=== PATIENT | male | born 1965 | race Caucasian/White ===

== ENCOUNTER 2018-04-15 20:53 | Inpatient (IN) ==
--- NOTE | 2018-04-15 21:09 | Emergency Department Note ---
START Narrative - START START: I examined this patient and my medical decision-making was reviewed with the Resident Physician. I agree with the documented findings, disposition and treatment plan as described except to the extent set forth below. 52 yo M here for chest pain. chest pain intermittent x 2 weeks. visiting fire house today. was telling them about chest pain. and brought into ER. received nitro, asa, fentanyl in route by ems. his ekg is normal will check acs labs and cxr +risk factors. O2 sat was 90%. don't supsect PE due to timeline of his chest pain. not tachy. hx of smoking years ago. +copd. no home O2.
--- NOTE | 2018-04-15 21:22 | Emergency Department Note ---
Disposition Clinical Impression: NSTEMI (non-ST elevated myocardial infarction) Disposition: Admitted As Inpatient Condition: Fair Referrals: Dixie Purcell CNP [Primary Care Provider] - Forms: ED Satisfaction Letter Time of Disposition: 22:16 Chest Pain HPI - General Chief Complaint: ED Chest Pain Stated Complaint: chest pain Time Seen by Provider: 04/15/18 20:55 Source: patient, EMS Mode of arrival: EMS Limitations: no limitations Vital Signs Reviewed: Yes Nursing Notes Reviewed: Yes - History of Present Illness HPI Narrative: 52-year-old male history of former smoking, presents complaining of chest pain, for 2-3 weeks. Chest pain with worse exertional dyspnea, substernal nonradiating but associated with dyspnea on exertion. Patient was evaluated in the firehouse today where he was hanging out with some friends, they did an EKG , given his symptoms and given 325 of aspirin, Nitropaste, fentanyl 50 mg, chest pain went from 4 out of 10-0 out of 10. Patient denies hemoptysis, leg swelling, history of PE or DVT or malignancy. Patient denies hematochezia or melena. Denies history of any stress test or cardiac workup in the past Pt complaint: chest pain Onset (ago): week(s) (2) Duration: intermittent Onset: during exertion Pain Location: substernal, left chest Severity: now resolved Severity scale (1-10): 0 Pain Radiation: none Improves with: nothing Associated symptoms: Reports: nausea, diaphoresis, dyspnea Treatments prior to arrival chest pain: aspirin, nitroglycerin, oxygen - Related Data Home Medications Medication Instructions Recorded Confirmed Aspirin Enteric Coated [Aspirin EC] 81 mg PO DAILY 04/15/18 04/15/18 Allergies Allergy/AdvReac Type Severity Reaction Status Date / Time Oxycodone Allergy Hives Verified 04/15/18 22:09 Penicillins Allergy Rash Verified 04/15/18 22:09 All systems ED: reviewed and negative except as stated. Review of Systems: As Per HPI Constitutional: Denies: fever, chills Eyes: Denies: eye pain ENT ED: Denies: ear pain Cardiovascular: Reports: as per HPI, chest pain Respiratory: Reports: as per HPI, dyspnea. Denies: cough Gastrointestinal: Reports: nausea. Denies: abdominal pain Genitourinary: Denies: urgency, dysuria Musculoskeletal: Denies: back pain Integumentary: Denies: rash Neurological: Denies: headache Chest Pain PMH - Past Medical History Medical history: Reports: hypertension Surgical history: Reports: orthopedic, other Psychiatric history: Reports: no psych history - Social History Smoking Status: Never smoker Alcohol use: Reports: none Drug use: Reports: none Physical Exam Constitutional: alert and oriented, in NAD, vital signs reviewed and wnl Neck: normal inspection, neck is supple, no JVD Resp: normal chest inspection, CTA bilaterally, no resp distress, no wheezes/ rales/rhonchi CV: RRR, no murmurs/gallops/rubs, S1 and S2 heard Extremity: +2 bilateral radial and posterial tibial pulses, no pedal edema GI: normal inspection, Soft, NTND, no peritoneal signs, no palpable abdominal aortic aneurysm Back: normal inspection, no tenderness to palpation Neuro: A&O3, no gross motor or sensory deficits bilaterally MSK: normal inspection, bilateral UE and LE with normal ROM Skin: No rashes, skin warm, dry, intact - General Limitations: no limitations General appearance: alert Course Course Narrative: Patient's well-appearing, he has a heart score of 4 given's moderately suspicious story, will keep the Nitropaste on at this time, checking labs CBC BMP troponin, chest x-ray his EKG shows no acute ischemic changes plan is for admission for chest pain - Reevaluation(s) Reevaluation #1: ADmitted to Dr Bass for NSTEMI trop elevated confirmed no GI bleeding or bleeding, statrted on Heparin given ASA en route, CP free currently. Time: 22:20 Vital Signs Temperature 98.4 F 04/15/18 20:57 Pulse Rate 84 04/15/18 20:57 Respiratory Rate 14 04/15/18 20:57 Blood Pressure 155/93 04/15/18 20:57 O2 Sat by Pulse Oximetry 96 04/15/18 20:57 Temperature 98.4 F 04/15/18 20:57 Pulse Rate 76 04/15/18 22:33 Respiratory Rate 12 04/15/18 22:33 Blood Pressure 130/87 04/15/18 22:33 O2 Sat by Pulse Oximetry 93 04/15/18 22:33 Oxygen Delivery Oxygen Delivery Room Air Chest Pain - Differential Diagnosis Likely: fracture of rib, pneumothorax, stable angina, unstable angina pectoris, st elevation myocardial infraction - Medical Records Medical records reviewed: Yes I reviewed the patient's medical records. - Lab Data Lab results reviewed: Yes I reviewed the patient's lab results. Result diagrams: 04/15/18 21:14 04/15/18 21:14 Lab Results 04/15/18 04/15/18 04/15/18 Range/Units 21:14 21:14 21:14 WBC 7.1 (4.3-11.1) K/mcL RBC 4.85 (4.19-5.50) M/mcL Hgb 14.7 (12.9-16.9) g/dL Hct 42.3 (37.5-50.1) % MCV 87.2 (83.0-100.0) fL MCH 30.3 (28.0-33.3) pg MCHC 34.8 (31.6-35.5) g/dL RDW 13.0 (11.5-14.5) % Plt Count 173 (140-400) K/mcL MPV 9.1 L (9.4-12.4) fL Immature Gran % 0.7 (0-4) % Seg Neutrophils % 62.8 % Lymphocytes % 25.6 % Monocytes % 8.4 % Eosinophils % 1.7 % Basophils % 0.8 % Neutrophils # 4.5 (1.6-8.9) K/mcL Lymphocytes # 1.8 (0.6-4.6) K/mcL Monocytes # 0.6 (0.0-1.3) K/mcL Eosinophils # 0.1 (0.0-0.6) K/mcL Basophils # 0.1 (0.0-0.2) K/mcL PT 11.0 (9.4-12.1) Seconds INR 1.0 APTT 35.7 (26.0-36.0) Seconds Sodium 139 (136-145) mEq/L Potassium 3.9 (3.5-5.1) mEq/L Chloride 107 (98-107) mEq/L Carbon Dioxide 25 (23-29) mEq/L BUN 21 H (6-20) mg/dL Creatinine 1.09 (0.70-1.30) mg/dL Est GFR ( Amer) > 60 (> 60) Est GFR (Non-Af Amer) > 60 (> 60) BUN/Creatinine Ratio 19 (6-26) Glucose 147 H (70-105) mg/dL Calculated Osmolality 294 (280-300) Calcium 9.0 (8.6-10.3) mg/dL Troponin I 0.56 H* (< 0.04) ng/mL - Radiology Data Radiology results reviewed: Yes I reviewed the patient's radiology results. Chest X-Ray 04/15/18 21:07 IMPRESSION: No acute disease. D/ / Greg Bazan MD / Greg Bazan MD Interpreting Provider: Greg Bazan MD - EKG Data EKG attestation: Yes I reviewed and interpreted this EKG. EKG shows normal: sinus rhythm Rate: normal (70 bpm 165 [place] QRS [address] segment elevations or depressions.) - Core Measures AMI Core Measures Followed: Yes Heart Score - Score History: Moderately Suspicious EKG: Non Specific repolarisation Disturbance Age: 45-65 Risk Factors: 1-2 risk factors Troponin: Less than normal limit HEART Score Total: 4 Critical Care Time Critical Care Time: Yes Total Critical Care Time: 35 Attestation: Total critical care time of 35 minutes spent in medical management of a non-ST elevation [place].--Dr max
[2018-04-15 21:26] LABS: Basophils # 0.1 K/mcL (0.0-0.2); Basophils % 0.8 %; Eosinophils # 0.1 K/mcL (0.0-0.6); Eosinophils % 1.7 %; Hematocrit 42.3 % (37.5-50.1); Hemoglobin 14.7 g/dL (12.9-16.9); Immature Granulocytes % 0.7 % (0-4); Lymphocytes # 1.8 K/mcL (0.6-4.6); Lymphocytes % 25.6 %; Mean Corpuscular HGB Conc 34.8 g/dL (31.6-35.5); Mean Corpuscular Hemoglobin 30.3 pg (28.0-33.3); Mean Corpuscular Volume 87.2 fL (83.0-100.0); Mean Platelet Volume 9.1 fL (9.4-12.4); Monocytes # 0.6 K/mcL (0.0-1.3); Monocytes % 8.4 %; Neutrophils # 4.5 K/mcL (1.6-8.9); Platelet Count 173 K/mcL (140-400); Red Blood Count 4.85 M/mcL (4.19-5.50); Segmented Neutrophils % 62.8 %
[2018-04-15 21:37] LABS: Activated Partial Thrombo Time 35.7 Seconds (26.0-36.0)
[2018-04-15 21:46] LABS: BUN/Creatinine Ratio 19 (6-26); Blood Urea Nitrogen 21 mg/dL (6-20); Carbon Dioxide 25 mEq/L (23-29); Chloride 107 mEq/L (98-107); Glucose 147 mg/dL (70-105); Osmolality,Calculated 294 (280-300); Potassium 3.9 mEq/L (3.5-5.1); Sodium 139 mEq/L (136-145); eGFR For African Americans > 60 (> 60); eGFR For Non-African Americans > 60 (> 60)
[2018-04-15 21:50] LABS: Troponin I 0.56 ng/mL (< 0.04)
[2018-04-15] MEDS ORDERED: *HR* Heparin 5,000 UNIT/ML VIAL IVP ONE (21:50)
[2018-04-15] MEDS ORDERED: *HR* Heparin 5,000 UNIT/ML VIAL IVP PRN ×2 (21:50)
[2018-04-15] MEDS ORDERED: Heparin 25,000 UNIT/500 ML D5W 25,000 UNIT/500 ML BAG IVC SCH (22:00)
[2018-04-15] MEDS ORDERED: Naloxone 0.4 MG/ML INJ IVP PRN (22:17)
[2018-04-15] MEDS ORDERED: Nitroglycerin 0.4 MG TAB.SUBL SL PRN (22:18)
--- NOTE | 2018-04-15 22:22 | Internal Med History&Physical ---
Date of Encounter: 04/15/18 Time of Encounter: 22:23 Internal Medicine - H&P: HPI Chief complaint: Chest Pain Admitted From: Emergency Dept Plans for Post Hospital Care: Home History of present illness: Mr. Ann is a 52 year old male history of former smoking who presents complaining of chest pain for 2-3 weeks. Worse wit exertion. Has associated dyspnea. substernal and nonradiating for the most part but one time he felt jaw pain. Feels nauseous at times. Patient was evaluated at the firehouse today where he was hanging out with some friends and complained of CP. EKG done there and was with no acute ischemic changes. Sent here and received 325 mg of aspirin , Nitropaste, fentanyl 50 mg, chest pain went from 4 out of 10 to 0 out of 10. He later experienced chest pain again and was put on a nitro drip. Two EKG's obtained were unchanged with no acute ST or T wave changes. Patient denies hemoptysis, history of PE or DVT or malignancy. No headache, blurry vision, vomiting, abdominal pain, diarrhea, constipation, leg swelling, urinary symptoms , or neurological symptoms Past Med Surg Social Fam HX - Past Medical History Medical history: hypertension Psychiatric history: no psych history - Past Surgical History Surgical History: orthopedic, other Additional surgical history: shoulder sx - Social History Smoking Status: Never smoker Smokeless Tobacco Status: No Alcohol use: none Drug use: none - Family History Mother Hx Family Cancer: Yes Internal Medicine - H&P: Meds Aspirin Enteric Coated [Aspirin EC] 81 mg PO DAILY 04/15/18 [History] 3 Allergy/AdvReac Type Severity Reaction Status Date / Time Oxycodone Allergy Hives Verified 04/15/18 22:09 Penicillins Allergy Rash Verified 04/15/18 22:09 All Systems PM: A 10-system review of systems was performed and is negative for pertinent findings except as documented above in the HPI. Review of systems: All systems reviewed are negative except as mentioned above - Constitutional Vitals: Temp Pulse Resp BP Pulse Ox 98.4 F 84 14 155/93 96 04/15/18 20:57 04/15/18 20:57 04/15/18 20:57 04/15/18 20:57 04/15/18 20:57 Exam: GEN: NAD HEENT: AT, NC, No cyanosis, oral mucosa is moist, No JVD Lymphatics: No lymphadenoapthy Eyes: Extrocular muscles intact, anicteric CVS:RRR. S1, S2, No m/r/g RESP: CTAB ABD: Soft, NT, ND, +BS EXT: No edema, No rashes, 2+ DP NEURO: Nonfocal, CN II-XII intact, No focal motor or sensory deficits Psych: Cooperative, Not anxious or depressed Internal Med - H&P Results - Labs CBC & Chem 7: 04/15/18 21:14 04/15/18 21:14 Labs: Short CBC 04/15/18 Range/Units 21:14 WBC 7.1 (4.3-11.1) K/mcL Hgb 14.7 (12.9-16.9) g/dL Hct 42.3 (37.5-50.1) % Plt Count 173 (140-400) K/mcL Neutrophils # 4.5 (1.6-8.9) K/mcL BMP 04/15/18 21:14 Sodium 139 Potassium 3.9 Chloride 107 Carbon Dioxide 25 BUN 21 H Creatinine 1.09 Glucose 147 H Calcium 9.0 Cardiac Enzymes 04/15/18 Range/Units 21:14 Troponin I 0.56 H* (< 0.04) ng/mL - Impressions ITS Impressions Chest X-Ray 04/15/18 21:07 IMPRESSION: No acute disease. D/ / Greg Bazan MD / Greg Bazan MD Interpreting Provider: Greg Bazan MD - Assessment and plan (1) NSTEMI (non-ST elevated myocardial infarction) Current Visit: Yes Status: Acute Assessment and plan: We will start the patient on heparin drip. Consult cardiology. Trend cardiac enzymes. Nitro drip. Telemetry. Nothing by mouth after midnight. Sublingual nitroglycerin when necessary. Check echocardiogram. Check A1c and lipid panel. Start baby aspirin. (2) Hypertension Current Visit: Yes Status: Acute Assessment and plan: Patient is not on any antihypertensives. Given NSTEMI and elevated blood pressure we will start him on a beta brad. Qualifiers: Hypertension type: essential hypertension Qualified Code(s): I10 - Essential (primary) hypertension (3) DVT prophylaxis Current Visit: Yes Status: Acute Assessment and plan: On heparin drip - Time Spent With Patient Total time spent is greater than 50% in coordination of care (as documented) at patient's floor/unit and/or counseling patient:
[2018-04-15] MEDS: Nitroglycerin 25 MG/250 ML INFUS..BTL IVC SCH (23:20)
[2018-04-16] MEDS: Acetaminophen 325 MG TABLET PO PRN ×2 (02:05→19:59)
[2018-04-16 03:15] LABS: Basophils # 0.1 K/mcL (0.0-0.2); Basophils % 0.8 %; Eosinophils # 0.2 K/mcL (0.0-0.6); Eosinophils % 3.7 %; Hematocrit 41.2 % (37.5-50.1); Hemoglobin 14.2 g/dL (12.9-16.9); Immature Granulocytes % 0.5 % (0-4); Lymphocytes # 2.4 K/mcL (0.6-4.6); Lymphocytes % 37.3 %; Mean Corpuscular HGB Conc 34.5 g/dL (31.6-35.5); Mean Corpuscular Hemoglobin 30.4 pg (28.0-33.3); Mean Corpuscular Volume 88.2 fL (83.0-100.0); Mean Platelet Volume 9.5 fL (9.4-12.4); Monocytes # 0.6 K/mcL (0.0-1.3); Monocytes % 8.8 %; Neutrophils # 3.2 K/mcL (1.6-8.9); Platelet Count 170 K/mcL (140-400); Red Blood Count 4.67 M/mcL (4.19-5.50); Red Cell Distribution Width 13.2 % (11.5-14.5); Segmented Neutrophils % 48.9 %
[2018-04-16 03:36] LABS: BUN/Creatinine Ratio 20 (6-26); Blood Urea Nitrogen 21 mg/dL (6-20); Calcium 8.9 mg/dL (8.6-10.3); Carbon Dioxide 24 mEq/L (23-29); Chloride 107 mEq/L (98-107); Chol/HDL Ratio 4.5 (0-4.9); Cholesterol 189 mg/dL (< 200); Glucose 101 mg/dL (70-105); HDL Cholesterol 42 mg/dL (40-59); LDL Cholesterol,Calculated 127 mg/dL (0-99); Osmolality,Calculated 289 (280-300); Sodium 138 mEq/L (136-145); Triglycerides 100 mg/dL (< 150); eGFR For African Americans > 60 (> 60); eGFR For Non-African Americans > 60 (> 60)
[2018-04-16 03:49] LABS: Thyroid Stimulating Hormone 2.317 mcIU/mL (0.340-5.600)
[2018-04-16] MEDS: traMADol 50 MG TABLET PO PRN ×2 (06:23→15:37)
[2018-04-16] MEDS ORDERED: Aspirin Enteric Coated 81 MG Tablet PO SCH (09:00)
[2018-04-16] MEDS ORDERED: 0.9 % Sodium Chloride 1,000 ML ONE ×2 (09:12→09:39)
[2018-04-16] MEDS ORDERED: Heparin 1,000 UNITS/500 mL 500 ML ONE (09:12)
[2018-04-16] MEDS ORDERED: *HR* Heparin 10,000 UNIT/10 ML VIAL ONE (09:12)
[2018-04-16] MEDS ORDERED: ISOVUE-370 200 ML INFUS..BTL IV ONE (09:12)
[2018-04-16] MEDS ORDERED: Nitroglycerin 1,000 MCG/10 ML VIAL IV ONE (09:13)
--- NOTE | 2018-04-16 09:13 | Cardiology Consult Note ---
<Pelon Bolanos R - Last Filed: 04/16/18 09:13> Date of Encounter: 04/16/18 Time of Encounter: 09:13 Assessment and Plan (1) NSTEMI (non-ST elevated myocardial infarction) Current Visit: Yes Status: Acute Troponins 0.56, 0.92. Presented with typical chest pain--intermittent 2-3 weeks , worse with exertion, midsternal with radiation to neck and jaw at times. Currently on nitro gtt 20mcg/min. Experiencing significant headache from nitro, but when nitro is turned down experiences chest pain. EKG no acute findings. On heparin gtt, ASA, BB. Will start Statin. TTE to evaluate structure and function. Recommend LHC. R/B/A discussed. Pt agrees to proceed. LHC today. Discussion w patient/family: The assessment and plan as outlined above was discussed with the patient and/or family members who expressed understanding and agreement. All questions were answered. Thank you for involving us in the care of your patient. Please call with any questions. I will discuss all the above with Dr. More and make changes as necessary. History of Present Illness Consult date: 04/16/18 Requesting physician: Harsha Melendrez Consult reason: NSTEMI Chief complaint: chest pain History of present illness: Mr. Ann is a 52 year old male with history of former tobacco abuse who presented to ED complaining of intermittent chest pain for that past 2-3 weeks. Described as midsternal tightness with radiation to neck and jaw, worse with exertion. Troponins 0.56, 0.92. Cardiology consulted for further recs. He is currently on nitro gtt at 20mcg/min. Reports headache with nitro, but each time nitro is turned down he experiences chest pain. EKGs without acute changes. Past Med Surg Social Fam HX - Past Medical History Medical history: hypertension Psychiatric history: no psych history - Past Surgical History Surgical History: orthopedic, other Additional surgical history: R shoulder sx - Social History Smoking Status: Former smoker Smokeless Tobacco Status: No Alcohol use: none Drug use: none - Family History Mother Name: Laura Ann Age: 33 Family Member Ethnicity: Non- Living Status: Age at : 33 Cause of : cancer Hx Family Cardiac Disorders: No Hx Family Respiratory Disorders: No Hx Family Cancer: Yes (Brain) Hx Family GI Disorders: No Hx Family Genitourinary Disorders: No Hx Family Endocrine Disorder: No Hx Family Musculoskeletal Disorders: No Hx Family Neuromuscular Disorders: No Hx Family Neurologic Disorders: No Hx Family Autoimmune Disorders: No Hx Family Reproductive Disorders: No Hx Family Psychosocial Disorders: No Hx Family Medical Disorders: No Medications and Allergies Aspirin Enteric Coated [Aspirin EC] 81 mg PO DAILY 04/15/18 [History] 3 Allergy/AdvReac Type Severity Reaction Status Date / Time Oxycodone Allergy Hives Verified 04/15/18 22:09 Penicillins Allergy Rash Verified 04/15/18 22:09 All Systems Review: The remainder of the systems were reviewed and are negative - Cardiovascular Cardiovascular: as per HPI, chest pain at rest, chest pain with exertion, radiating jaw, neck or arm pain Physical Examination Vital Signs, Last 4 Hours Temp Pulse Resp BP Pulse Ox 04/16/18 06:48 97.4 F L 55 17 132/90 94 Vital Signs Temp Pulse Resp BP Pulse Ox 04/16/18 06:48 97.4 F L 55 17 132/90 94 04/16/18 05:00 97.7 F 49 15 108/71 94 04/16/18 02:20 98 04/16/18 02:03 98.2 F 57 16 132/84 93 04/16/18 01:25 14 134/89 04/16/18 00:47 63 14 134/89 95 04/15/18 23:28 85 14 131/90 93 04/15/18 22:33 76 12 130/87 93 04/15/18 20:57 98.4 F 84 14 155/93 93 Intake and Output 04/15/18 04/16/18 04/16/18 23:59 07:59 15:59 Intake Total 265 / 265 Output Total 400 / 400 Balance -135 / -135 Intake: IV Fluids 265 / 265 Heparin 25,000 UNIT/500 ML D5W 175 / 175 25,000 unit In 500 ml @ 10 UNIT /KG/HR 19.142 mls/hr IVC .Q24H DINORAH Rx#:[id number] Nitroglycerin Premix 25 MG/250 90 / 90 ML 25 mg In 250 ml @ 20 MCG/MIN 12 mls/hr IVC .[id number] DINORAH Rx# :[id number] Oral 0 / 0 Output: Urine 400 / 400 Other: Weight 95.708 kg 96.4 kg Patient Weight 04/16/18 23:59 Weight 96.4 kg General: Conversant, No Apparent Distress HEENT: Atraumatic, Normocephaly, Mucus Membranes Moist Neck: No JVD, Normal carotid pulses Cardiac: Reg Rate and Rhythm, Normal S1 and S2, No Murmur Lungs: Normal Breath Sounds, No Wheeze, Rales, Rhonchi Neuro: Alert and responsive, No focal deficits noted Abdomen: Soft, Non-Tender Skin: No rashes noted on visualized skin Musculoskeletal: No Chest Wall Tenderness Extremities: No Clubbing, No Cyanosis, No Edema, Normal Pulses Results 04/16/18 02:52 04/16/18 02:52 Lab Results 04/16/18 04/16/18 04/16/18 02:52 02:52 02:52 WBC 6.5 Hgb 14.2 Hct 41.2 Plt Count 170 APTT Sodium 138 Potassium 4.0 Chloride 107 Carbon Dioxide 24 BUN 21 H Creatinine 1.03 Glucose 101 Calcium 8.9 Troponin I 0.92 H* TSH 2.317 04/16/18 04:35 WBC Hgb Hct Plt Count APTT 107.3 H D Sodium Potassium Chloride Carbon Dioxide BUN Creatinine Glucose Calcium Troponin I TSH Short CBC 04/16/18 04/15/18 Range/Units 02:52 21:14 WBC 6.5 7.1 (4.3-11.1) K/mcL Hgb 14.2 14.7 (12.9-16.9) g/dL Hct 41.2 42.3 (37.5-50.1) % Plt Count 170 173 (140-400) K/mcL Neutrophils # 3.2 4.5 (1.6-8.9) K/mcL BMP 04/16/18 04/15/18 Range/Units 02:52 21:14 Sodium 138 139 (136-145) mEq/L Potassium 4.0 3.9 (3.5-5.1) mEq/L Chloride 107 107 (98-107) mEq/L Carbon Dioxide 24 25 (23-29) mEq/L BUN 21 H 21 H (6-20) mg/dL Creatinine 1.03 1.09 (0.70-1.30) mg/dL Glucose 101 147 H (70-105) mg/dL Calcium 8.9 9.0 (8.6-10.3) mg/dL Cardiac Enzymes 04/16/18 04/15/18 Range/Units 02:52 21:14 Troponin I 0.92 H* 0.56 H* (< 0.04) ng/mL Impressions Chest X-Ray 04/15/18 21:07 IMPRESSION: No acute disease. D/ / Greg Bazan MD / Greg Bazan MD Interpreting Provider: Greg Bazan MD Active Medications Acetaminophen (Tylenol) 650 mg PO Q6HR PRN PRN Reason: Mild Pain/Fever Stop: 10/15/18 22:18 Last Admin: 04/16/18 02:05 Dose: 650 mg Aspirin (Aspirin Ec) 81 mg PO DAILY DINORAH Stop: 10/16/18 09:01 Heparin Sodium (Porcine) (Heparin) 4,000 unit IVP Q6HR PRN PRN Reason: SEE COMMENTS Stop: 10/15/18 21:51 Heparin Sodium (Porcine) (Heparin) 2,000 unit IVP Q6H PRN PRN Reason: SEE COMMENTS Stop: 10/15/18 21:51 Heparin Sodium/Dextrose (Heparin 25,000 Unit/500 Ml D5w) 25,000 unit in 500 mls @ 19.142 mls/hr IVC .Q24H DINORAH; 10 UNIT/KG/HR PRN Reason: Protocol Stop: 10/15/18 22:01 Last Titration: 04/16/18 05:46 Dose: 10 unit/kg/hr, 19.142 mls/hr Nitroglycerin (Nitroglycerin Premix 25 Mg/250 Ml) 25 mg in 250 mls @ 12 mls/hr IVC .[id number] DINORAH; 20 MCG/MIN PRN Reason: Protocol Stop: 10/15/18 23:16 Last Titration: 04/16/18 06:18 Dose: 20 mcg/min, 12 mls/hr Metoprolol Tartrate (Lopressor) 12.5 mg PO BID DINORAH Stop: 10/15/18 22:31 Last Admin: 04/16/18 03:16 Dose: Not Given Naloxone HCl (Narcan) 0.4 mg IVP Q2MIN PRN PRN Reason: SEE COMMENTS Stop: 10/15/18 22:18 Nitroglycerin (Nitroglycerin) 0.4 mg SL Q5MIN PRN PRN Reason: Chest Pain Stop: 10/15/18 22:19 Tramadol HCl (Ultram) 50 mg PO Q4HR PRN PRN Reason: pain 4-6 Stop: 10/16/18 06:17 Last Admin: 04/16/18 06:23 Dose: 50 mg - Imaging and Cardiology Echo: pending - EKG Interpretation EKG results cardiology: personally reviewed (SR) Consult Discharge Plan - Plan Referrals: Dixie Purcell, MANAGER ENGINE [Primary Care Provider] - <Jace More - Last Filed: 04/16/18 15:36> Date of Encounter: 04/16/18 - Attending Attestation I have personally performed a face to face evaluation on this patient. I have reviewed and agree with the care plan. History and Exam by me shows: NSTEMI currently s/p PCI to the RCA [facility] medical management Assessment and Plan Discussion w patient/family: The assessment and plan as outlined above was discussed with the patient and/or family members who expressed understanding and agreement. All questions were answered. Thank you for involving us in the care of your patient. Please call with any questions. History of Present Illness History of present illness: Mr. Ann is a 52 year old male All Systems Review: The remainder of the systems were reviewed and are negative Results 04/16/18 02:52 04/16/18 02:52 Lab Results 04/16/18 04/16/18 04/16/18 02:52 02:52 02:52 WBC 6.5 Hgb 14.2 Hct 41.2 Plt Count 170 APTT Sodium 138 Potassium 4.0 Chloride 107 Carbon Dioxide 24 BUN 21 H Creatinine 1.03 Glucose 101 Calcium 8.9 Troponin I 0.92 H* TSH 2.317 04/16/18 04/16/18 04/16/18 04:35 13:38 13:38 WBC Hgb Hct Plt Count APTT 107.3 H D 34.3 D Sodium Potassium Chloride Carbon Dioxide BUN Creatinine Glucose Calcium Troponin I 0.42 H* TSH
[2018-04-16] MEDS ORDERED: *HR* Midazolam HCl 2 MG/2 ML VIAL ONE ×3 (09:44→11:05)
[2018-04-16] MEDS: Aspirin Enteric Coated 81 MG Tablet PO SCH (09:47)
--- NOTE | 2018-04-16 09:49 | Pre-Sedation Evaluation ---
Pre-sedation evaluation - Pre-sedation checklist Date of procedure: 04/16/18 Procedure: left heart cath possible Recent Vitals: Last Vital Signs Temp 97.4 F L 04/16/18 06:48 Pulse 55 04/16/18 06:48 Resp 17 04/16/18 06:48 BP 132/90 04/16/18 06:48 Pulse Ox 94 04/16/18 06:48 H&P (including ROS) documented in medical record: Yes Previous reaction to sedatives/anesthetics: No Dietary Status: NPO after Midnight Airway Assessment: Patient can open mouth completely, TMJ function normal Dentition: No loose teeth or bridges Possible difficult airway: No ASA Classification *see protocol: CLASS IV-Severe systemic disease/constant threat to pt's life Plan of Care: Pt appropriate candidate for procedure/moderate/conscious sedation , Risks/benefits of procedure/sedation discussed w/ patient/family, If not NPO; Risk of intake outweiged by necessity to perform procedure
[2018-04-16] MEDS ORDERED: *HR* Morphine 2 MG/ML SYRINGE ONE ×2 (10:51→10:59)
[2018-04-16] MEDS ORDERED: *HR* Ticagrelor 90 MG TABLET ONE (11:13)
[2018-04-16] MEDS: 0.9 % Sodium Chloride 1,000 ML IVC SCH ×2 (11:30→17:49)
--- NOTE | 2018-04-16 12:45 | Invasive Diagnostic Lab Proc ---
Name: Arlette Ann Date of Study: 04/16/2018 Date: 1965 Ht: 71.0in Medical Record#: [id number] Age: 52 Wt: 211.64lb Gender: Male BSA: 2.16 Order #: [id number] BMI: 29.52 Physicians Procedure Physician: Thuan Spear DO Referring MD: Referring MD: Staff Name Position Time In ShellieElroy fraga RN Monitor 09:42 AM Juma Mcgrath RN Computer Numerical Control Machinist 09:42 AM Jabier Joiner RT (R) Scrub 09:42 AM Sangeetha Nguyen RN Nurse 09:42 AM Indications Indication Non-Stemi Procedures Performed Procedure L HRT ARTERY/VENTRICLE ANGIO PRQ CARD ANTONIA STENT W/ANGIO 1 VSL Pre-Procedure Checklist Informed consent is complete signed and on chart. H&P is on chart. ID band is on and ID verified with patient. Patient NPO for procedure The procedure was described for the patient and questions were answered. ECG is on chart. Rhythm: Sinus Bradycardia Plan of Care Patient will tolerate the procedure without complications. Adequate level of comfort will be maintained. Hemodynamics will remain stable Patient will recover from procedure without complications. Respiratory function will be maintained. Cardiac rhythm will remain stable. Patient temperature will be maintained. Patient and/or family have verbalized understanding of the procedure. Patient Education Chief Complaint/Reason for Test: Cardiac Cath Developmental Category: Adult (18-64 years) Developmentally Appropriate for Age: Yes Learning Barriers: None Education Needs: Procedure Education Method: Verbal Information Taught: Cardiac Cath Educational Evaluation: Able to repeat information Intravenous Access Time IV Size Location DC'd Fluid/Drip Rate Units RN 20g 1 /" Patent On Arrival Lt Arm Juma Mcgrath RN Allergies Oxycodone Penicillins Vital Signs Time BP (mmHg) HR (bpm) O2 Sat. RR (bpm) LOC 132 / 90 55 94 % 17 5 = Fully awake and oriented or at pre-proc level 09:42 AM / % 5 = Fully awake and oriented or at pre-proc level 09:43 AM / % 4 = Oriented but drowsy 09:58 AM / % 4 = Oriented but drowsy 10:13 AM / % 4 = Oriented but drowsy 10:29 AM / % 4 = Oriented but drowsy 10:44 AM / % 4 = Oriented but drowsy 10:59 AM / % 4 = Oriented but drowsy 10:23 AM 133 / 77 60 100 % 10:28 AM 132 / 86 57 99 % 10:33 AM 137 / 84 59 100 % 10:38 AM 148 / 88 57 99 % 10:43 AM 148 / 97 57 100 % 10:48 AM 127 / 84 46 98 % 10:53 AM 151 / 100 66 97 % 10:58 AM 141 / 99 56 96 % 11:03 AM 149 / 93 59 97 % 11:09 AM 125 / 81 71 95 % 09:43 AM 94 / 43 79 96 % 09:48 AM 141 / 83 60 92 % 09:53 AM 139 / 84 62 97 % 09:58 AM 145 / 82 54 98 % 10:03 AM 128 / 79 50 97 % 10:08 AM 117 / 78 55 100 % 10:13 AM 139 / 82 55 99 % 10:18 AM 140 / 86 55 99 % 11:20 AM 149 / 88 46 97 % 15 4 = Oriented but drowsy 11:30 AM 153 / 99 52 97 % 15 4 = Oriented but drowsy 11:44 AM 161 / 94 47 98 % 15 4 = Oriented but drowsy 12:00 PM 154 / 92 48 98 % 16 2 = Responds to voice 12:15 PM 135 / 89 52 95 % 16 3 = Answers simple questions/follows commands 12:29 PM 145 / 88 49 95 % 16 4 = Oriented but drowsy Procedural Medications Time Medication Dose Units Method Given By 09:43 AM Oxygen 2 L/min nasal cannula Juma Mcgrath RN 09:49 AM Versed 2 mg Intravenous Juma Mcgrath RN 10:03 AM Lidocaine 2% 10 ml Subcutaneous Thuan Spear DO 10:14 AM Heparin 2000 units Intravenous Juma Mcgrath RN 10:23 AM Nitroglycerin 100 mcg Intracoronary Thuan Spear DO 10:48 AM Versed 1 mg Intravenous Juma Mcgrath RN 10:51 AM Morphine 2 mg Intravenous Juma Mcgrath RN 10:53 AM Nitroglycerin 100 mcg Intracoronary Thuan Spear DO 11:00 AM Morphine 2 mg Intravenous Juma Mcgrath RN 11:02 AM Nitroglycerin 200 mcg Intracoronary Thuan Spear DO 11:04 AM Nitroglycerin 200 mcg Intracoronary Thuan Spear DO 11:05 AM Versed 2 mg Intravenous Juma Mcgrath RN 11:22 AM Brilinta 180 mg Orally Juma Mcgrath RN 11:46 AM Nitroglycerin 10 mcg/min Intravenous Stefano Smith RN ASA Classification: CLASS IV- Severe systemic that is constant threat to patient's life Deepti Score Preprocedure Postprocedure Activity 2- Moves 4 extremities sustained head lift Activity Circulation 2- SBP +/= 20 points of pre-anesthetic level Circulation Consciousness 2- Awake and alert oriented x 3 Consciousness O2 Saturation 2- Able to maintain O2 satruation of 92% on room air O2 Saturation Respiratory 2- Able to deep breathe and cough well Respiratory Total Score 10 Total Score Contrast Agent: Isovue Diagnostic Contrast: 175 ml Total Contrast: 175 ml Fluoro Dose: 2651 mGy Activated Clotting Time Time Seconds to Clot 10:14 AM 190 10:28 AM 324 11:13 AM 167 Procedure Log Time Note Enter By 09:42 AM Pt arrived to clay processing labourer 2 at :42 [facility] 09:42 AM CathStat 09:42 AM Elroy Hensley RN Position: Monitor [facility]: [facility] Juma Mcgrath RN Position: Computer Numerical Control Machinist Time in: :42 [facility] 09:42 AM Vitals capture started with the following parameters, Patient=Adult, Interval=5 min, Initial Pqcmsbcv=153 mmHg, Deflation Rate=5 mmHg, Cuff placed on Right Arm 09:42 AM Jabier Joiner RT (R) Position: Scrub Time in: :42 [facility] 09:42 AM Sangeetha Nguyen RN Position: Nurse Time in: :42 [facility] AM Patient charges- Angio tray pack, Navilyst 3mm J, Pulse Oximetry and ACIST tubing and transducer [facility] :42 AM Hair removed from procedure site in procedure lab using clippers. Bilateral groin prepped with Chloraprep by Sangeetha Nguyen RN, then patient was draped. Skin intact. :42 AM Physician arrived :42 [facility]:42 AM Meet and greet completed :42 AM Sign in performed according to hospital policy. 09:42 AM Procedure start :42 [facility] AM Time: :42 Patient comfortable and pain free: Yes :43 AM Time: :42LOC: 5 = Fully awake and oriented or at pre-proc level [facility] AM Clinical Presentation: Non-STEMI [facility] :43 AM Time: 09:43 Oxygen on at 2 L/min per nasal cannula by Juma Mcgrath RN [facility] :43 AM HR=79 bpm, NIBP=94/43 mmhg, SpO2=96.0 %, Comment=nsr 09:48 AM Recorded ECG: HR=60 Condition=Condition 1 09:48 AM HR=60 bpm, UONE=914/83 mmhg, SpO2=92.0 %, Comment=nsr 09:49 AM Time: 09:49 Versed 2 mg Intravenous Given by Juma Mcgrath RN [facility] AM Pressure channel 2 zeroed. 09:53 AM HR=62 bpm, ETLL=581/84 mmhg, SpO2=97.0 %, Comment=nsr 09:55 AM ASA Class CLASS IV- Severe systemic that is constant threat to patient's life [facility] :58 AM Time: 09:43LOC: 4 = Oriented but drowsy [facility] :58 AM Time: 09:42 Patient comfortable and pain free: Yes [facility] :58 AM HR=54 bpm, FAST=887/82 mmhg, SpO2=98.0 %, Comment=sb 10:03 AM Time out performed according to hospital policy [facility] 10:03 AM Time: 10:03 10 ml Lidocaine 2% to right groin Subcutaneous Given by Thuan Spear DO [facility] 10:03 AM HR=50 bpm, NTCJ=941/79 mmhg, SpO2=97.0 %, Comment=sb 10:04 AM Micro-Introducer Kit utilized for sheath placement [facility] 10:05 AM Access obtained by percutaneous puncture. 6Fr 10cm Terumo [place] sheath placed in right Femoral artery. [id number] [facility] 10:05 AM 6Fr FR 4 catheter inserted over the wire [facility] 10:06 AM Recorded Pressure: LV, HR=61, Condition=Condition 1 (Left Ventricle) LV 124/5/-2 10:06 AM Recorded Pressure: LV, Ao, HR=62, Condition=Condition 1 (Left Ventricle) LV 110/-2/9, (Aorta) Ao 120/56/88 10:06 AM Catheter selectively placed in left ventricle [facility] 10:06 AM Bolus angiogram of left Ventricle complete. [facility] 10:06 AM cath repostitioned to RCA [facility] 10:06 AM RCA angiography performed in multiple views. [facility] 10:07 AM Catheter removed [facility] 10:07 AM 6Fr FL 4 catheter inserted over the wire [facility] 10:07 AM Coronary Dominance: right [facility] 10:08 AM HR=55 bpm, YLQX=768/78 mmhg, QrZ2=256.0 %, Comment=sb 10:08 AM Recorded Pressure: Ao, HR=59, Condition=Condition 1 (Aorta) Ao 135/72/96 10:08 AM Recorded Pressure: Ao, HR=60, Condition=Condition 1 (Aorta) Ao 127/71/94 10:09 AM LCA angiography performed in multiple views. [facility] 10:10 AM Lesion found in Distal RCA. Pre Stenosis: 95 Pre EUGENE Flow: 3: Complete and Brisk Flow/Perfusion [facility] 10:10 AM Lesion found in Mid LAD. Pre Stenosis: 40 Pre EUGENE Flow: [facility] 10:11 AM Mid/Distal Left Anterior Descending Coronary Artery and diagonal branches with 40% stenosis. If graft is supplying this area, 0 % stenosis [facility] 10:11 AM Right Coronary, Right Posterior Descending Arteries with Right Posterolateral and Acute Marginal branches with 95 % stenosis. If graft is supplying this area, 0 % stenosis [facility] 10:11 AM PCI Status Urgent [facility] 10:11 AM PCI Indication: PCI for high risk Non-STEMI or unstable angina [facility] 10:11 AM 6Fr JR 4 Cordis guide catheter was used to cannulate the PCI vessel successfully. reused? No [facility] 10:12 AM .014 ChoICE PT Extra Support 300cm guide wire across target lesion- successful. reused? No [facility] 10:12 AM Inflation device was opened. [facility] 10:12 AM Recorded Pressure: Ao, HR=55, Condition=Condition 1 (Aorta) Ao 134/76/99 10:13 AM 3.0mm x 16mm Synergy drug-eluting stent across target lesion- successful Lot #[id number] [facility] 10:13 AM Time: 09:58 Patient comfortable and pain free: Yes [facility] 10:13 AM HR=55 bpm, MSLH=595/82 mmhg, SpO2=99.0 %, Comment=sb 10:13 AM Time: 09:58LOC: 4 = Oriented but drowsy [facility] 10:14 AM At 10:14 the ACT was 190 seconds. [facility] 10:14 AM Time: 10:14 Heparin 2000 units Intravenous Given by Juma Mcgrath RN [facility] 10[facility]16 AM Wire being re-shaped. [facility] 10:18 AM HR=55 bpm, YFGQ=184/86 mmhg, SpO2=99.0 %, Comment=sb 10:18 AM Recorded Pressure: Ao, HR=56, Condition=Condition 1 (Aorta) Ao 134/74/98 10:19 AM stent removed, undeployed [facility] 10:20 AM 2.0 mm x 15 mm Emerge Monorail balloon across target lesion- successful. reused? No [facility] 10:23 AM HR=60 bpm, IKOW=061/77 mmhg, RqO8=172.0 %, Comment=sb 10:23 AM Time: : Nitroglycerin 100 mcg Intracoronary Given by Thuan Spear DO [facility] 10:24 AM Recorded Pressure: Ao, HR=69, Condition=Condition 1 (Aorta) Ao 121/76/96 10:26 AM Balloon inflated @ 12 josué for 16 seconds [facility] 10:27 AM Balloon inflated @ 12 josué for 18 seconds [facility] 10:28 AM HR=57 bpm, OSDO=534/86 mmhg, SpO2=99.0 %, Comment=sb 10:28 AM Balloon inflated @ 14 josué for 19 seconds [facility] 10:28 AM At 10:28 the ACT was 324 seconds. [facility] 10:29 AM Time: 10:13LOC: 4 = Oriented but drowsy [facility] 10:29 AM Balloon catheter removed intact. [facility] 10:29 AM Time: 10:13 Patient comfortable and pain free: Yes [facility] 10:29 AM Lesion found in Proximal RCA. Pre Stenosis: 60 Pre EUGENE Flow: 3 [facility] 10:29 AM Lesion found in Mid RCA. Pre Stenosis: 60 Pre EUGENE Flow: 3 [facility] 10:29 AM 3.0 mm x 15 mm Emerge Monorail balloon across target lesion- successful. reused? No [facility] 10:32 AM Dilating proximal lesion d/t difficulty getting through to distal RCA [facility] 10:33 AM HR=59 bpm, DNCM=126/84 mmhg, FaW1=662.0 %, Comment=sb 10:33 AM Balloon inflated @ 14 josué for 17 seconds [facility] 10:33 AM Balloon inflated @ 14 josué for 16 seconds [facility] 10:35 AM Balloon catheter removed intact. [facility] 10:38 AM HR=57 bpm, ZNXS=190/88 mmhg, SpO2=99.0 %, Comment=sb 10:40 AM .014 ChoICE PT Extra Support 300cm guide wire across target lesion- successful. reused? No (Second wire) [facility] 10:41 AM 3.5 mm x 20 mm Emerge Monorail balloon across target lesion- successful. reused? No [facility] 10:41 AM Balloon inflated @ 12 josué for 17 seconds [facility] 10:41 AM Balloon inflated @ 12 josué for 16 seconds [facility] 10:42 AM Balloon catheter removed intact. [facility] 10:43 AM HR=57 bpm, RKRM=543/97 mmhg, MeJ7=629.0 %, Comment=sb 10:43 AM 3.0 x 16 mm synergy re-inserted [facility] 10:44 AM Time: 10:29LOC: 4 = Oriented but drowsy [facility] 10:44 AM Time: 10:29 Patient comfortable and pain free: Yes [facility] 10:45 AM Stent deployed @ 14 josué for 16 seconds [facility] 10:46 AM 4.0mm x 20mm Synergy drug-eluting stent across target lesion- successful Lot #[id number] [facility] 10:47 AM Stent delivery system removed intact. [facility] 10:48 AM HR=46 bpm, IRRQ=446/84 mmhg, SpO2=98.0 %, Comment=sb 10:48 AM Time: 10:48 Versed 1 mg Intravenous Given by Juma Mcgrath RN [facility] 10:49 AM Stent deployed @ 14 josué for 18 seconds [facility] 10:49 AM Stent delivery system removed intact. [facility] 10:51 AM 4.0mm x 24mm Synergy drug-eluting stent across target lesion- successful Lot #[id number] [facility] 10:51 AM Time: 10:51 Morphine 2 mg Intravenous Given by Juma Mcgrath RN 10:52 AM Stent deployed @ 14 josué for 16 seconds [facility] 10:53 AM Guide wire removed intact. (Second wire) [facility] 10:53 AM HR=66 bpm, KJBU=674/100 mmhg, SpO2=97.0 %, Comment=nsr 10:53 AM Time: 10:53 Nitroglycerin 100 mcg Intracoronary Given by Thuan Spear DO [facility] 10:55 AM Stent delivery system removed intact. [facility] 10:56 AM 4.0mm x 16mm Synergy drug-eluting stent across target lesion- successful Lot #[id number] [facility] 10:56 AM Recorded Pressure: Ao, HR=65, Condition=Condition 1 (Aorta) Ao 144/87/114 10:58 AM HR=56 bpm, RQKW=174/99 mmhg, SpO2=96.0 %, Comment=nsr 10:58 AM Stent deployed @ 16 josué for 20 seconds [facility] 10:58 AM Stent delivery system removed intact. [facility] 10:59 AM Time: 10:44LOC: 4 = Oriented but drowsy [facility] 10:59 AM Time: 10:44 Patient comfortable and pain free: Yes [facility] 11:00 AM 3.5mm x 12mm Synergy drug-eluting stent across target lesion- successful Lot #[id number] [facility] 11:00 AM Stent deployed @ 18 josué for 14 seconds [facility] 11:01 AM Time: 11:00 Morphine 2 mg Intravenous Given by Juma Mcgrath RN 11:01 AM Stent delivery system removed intact. [facility] 11:01 AM 4.0 x 16 stent balloon re-inserted [facility] 11:02 AM Time: 11:02 Nitroglycerin 200 mcg Intracoronary Given by Thuan Spear DO [facility] 11:03 AM HR=59 bpm, ZNVV=144/93 mmhg, SpO2=97.0 %, Comment=nsr 11:04 AM Stent balloon reinflated @ 16 josué for 13 seconds [facility] 11:05 AM Time: 11:04 Nitroglycerin 200 mcg Intracoronary Given by Thuan Spear 11:06 AM Time: 11:05 Versed 2 mg Intravenous Given by Juma Mcgrath RN 11:06 AM Stent delivery system removed intact. [facility] 11:07 AM Right groin shot obtained. 5 ml contrast hand injected. [facility] 11:07 AM Guide catheter removed intact. [facility] 11:07 AM Guide wire removed intact. [facility] 11:09 AM HR=71 bpm, KSKH=747/81 mmhg, SpO2=95.0 %, Comment=nsr 11:11 AM Procedure completed at 11:11 [facility] 11:11 AM Did you address EUGENE flow and Dominance? Yes [facility] 11:12 AM Sign out completed: Radiation Dose 2651 mGy Fluoro Time: 22 Isovue 370 - 200ml contrast 175 ml given by Thuan Spear DO. Complications: NoneCardiac Rehab Consult needed: YesConfirmed administered medications: Yes [facility] 11[facility]12 AM Isovue 370 - 200ml,1 Bottle(s) used. [facility] 11:13 AM Sheath left in place to be pulled on floor/holding areaV+Pad [facility] 11:13 AM Estimated Blood Loss: less than 20cc [facility] 11:13 AM Post ECG NSR [facility] 11:13 AM At 11:13 the ACT was 167 seconds. [facility] 11:14 AM Time: 10:59 Patient comfortable and pain free: Yes [facility] 11:14 AM Time: 10:59LOC: 4 = Oriented but drowsy [facility] 11:15 AM Post Blood Pressure 125/81 [facility] 11:15 AM 11:15 Post Pulses Bilateral DP & PT 2+ [facility] 11:15 AM Information taught Cardiac Cath and PCI [facility] 11:15 AM Education needs Plan of Care, Procedure, and Responsibilities of Patient in Care [facility] 11:15 AM Learning barriers :None [facility] 11:15 AM Education Methods Verbal [facility] 11:15 AM Education evaluation Able to repeat information [facility] 11:15 AM Site status No bleeding/hematoma - Rt Groin as reported by Jabier Joiner RT (R) at 11:15 [facility] 11:15 AM Opsite applied [facility] 11:15 AM Report given to Smita DONALDSON Pt taken to Holding room Room #3. 11:15 [facility] 11:16 AM Plavix, Effient or Brilinta given Yes [facility] 11:16 AM Patient out of room: 11:16 [facility] 11:16 AM Family placed in consult room. [facility] 11:16 AM Complications: None [facility] 11:16 AM Fluoro Time: 22 [facility] 11:16 AM Isovue 370 - 200ml contrast 175 ml given by Thuan Spear. [facility] 11:16 AM Radiation Dose 2651 mGy [facility] 11:22 AM Time: : Brilinta 180 mg Orally Given by Juma Mcgrath RN [facility] 11:45 AM continued bradycardia. SB HR 40s briefly and quickly returns to SB HR 50s. Pt asymptomatic. Will monitor closely mprater 11:45 AM pt is havning 3/10 chest pain. notified, he ordered to put patient back on nitro gtt. Nitro gtt restarted at 10mcg/min by stefano DONALDSON scoates 11:47 AM Arterial sheath pulled using manual compression and V+ Pad for 15 minutes by Jyoti Renteria RN mprater 11:55 AM patient drowsy. When pt aroused, chest pain 2/10. Increased NTG gtt to 9cc/15mcg. mprater 12:06 PM Pt states "The pain is gone" mprater 12:30 PM report called to Bhavya DONALDSON. Dr Spear updated, pt pain free, will not resume heparin mprater 12:38 PM patient transported to E mprater Complications Complication None None Hemodynamics Pressures Site Systolic/A Wave Diastolic/V Wave Mean LV 124 5 -2 LV 110 -2 9 AO 120 56 88 AO 135 72 96 AO 127 71 94 AO 134 76 99 AO 134 74 98 AO 121 76 96 AO 144 87 114 Post Procedure Information Blood Pressure: 125/81 mmHg Rhythm: NSR Post procedural instructions were given Site Checks Time Location Status Staff Sheath In? Note 11:15 AM Rt Groin No bleeding/hematoma Jabier Joiner RT (R) Yes 11:30 AM Rt Groin No bleeding/ No Hematoma Smita Gross RN Yes 11:45 AM Rt Groin No bleeding/ No Hematoma Jyoti Renteria RN Yes 11:58 AM Rt Groin No bleeding/ No Hematoma Jyoti Renteria RN 12:14 PM Rt Groin No bleeding/ No Hematoma Jyoti Renteria RN 12:28 PM Rt Groin No bleeding/ No Hematoma Jyoti Renteria RN Pulses Time Site Pre-Procedure Post-Procedure Note Bilateral radial 2+ Bilateral DP & PT 2+ 11:15:00 AM Bilateral DP & PT 2+ 04/16/2018 11:33:00 AM Bilateral DP & PT 1+ 04/16/2018 11:44:00 AM Bilateral DP & PT 1+ 04/16/2018 12:00:00 PM Bilateral DP & PT 2+ 04/16/2018 12:15:00 PM Bilateral DP & PT 2+ 04/16/2018 12:29:00 PM Bilateral DP & PT 2+ Updated by Stefano Smith, MENDOZA on 04/16/2018 12:39:38 PM Stefano Smith RN electronically signed on 04/16/2018 12:40:30 PM with status of Final
[2018-04-16] MEDS ORDERED: Mag Hydrox/Al Hydrox/Simeth 30 ML UDC PO PRN (15:58)
[2018-04-16 16:13] LABS: Estimated Average Glucose 123 mg/dl; Hemoglobin A1C 5.9 %
--- NOTE | 2018-04-16 17:17 | Internal Med Progress Note ---
Date of Encounter: 04/16/18 Time of Encounter: 17:30 - Assessment and plan (1) NSTEMI (non-ST elevated myocardial infarction) Current Visit: Yes Status: Acute (2) Hypertension Current Visit: Yes Status: Acute Qualifiers: Hypertension type: essential hypertension Qualified Code(s): I10 - Essential (primary) hypertension (3) DVT prophylaxis Current Visit: Yes Status: Acute - Time Spent With Patient Plan Nausea and epigastric discomfort after cardiac catheterization, add Protonix counseling patient about that for liquid for today, based on cardiology team recommended at dose of Malox , monitor patient overnight, possible discharge next a.m. if his vital signs stable and okay with cardiology team, continue current medication Total time spent is greater than 50% in coordination of care (as documented) at patient's floor/unit and/or counseling patient: 25 - 35 minutes - Subjective Interval history: 52-year-old male admitted with chest pain, patient had cardiac catheterization today status post 5 stent placement based on patient report, awaiting cardiology final report. Status post cardiac catheterization patient at his meal then patient was complaining of epigastric discomfort, relieved completely after he vomited. Patient stated that he is passing gas okay. Denies any nausea or vomiting now. He denies any abdominal pain now. Chest pain 1 out of 10. She denies any motor or sensory changes. He had normal bowel movement yesterday - Constitutional Vitals: Temp Pulse Resp BP Pulse Ox 97.4 F L 68 16 142/83 93 04/16/18 15:43 04/16/18 15:43 04/16/18 15:43 04/16/18 15:43 04/16/18 15:43 - Head Head exam: Present: atraumatic, normocephalic - Neck Neck exam general surgery: Present: supple, trachea midline. Absent: lymphadenopathy - Respiratory Respiratory exam: Present: CTAB. Absent: accessory muscle use, rales, rhonchi, wheezes - Cardiovascular Cardiovascular exam: Present: RRR, +S1, +S2. Absent: diastolic murmur, gallop, rubs, systolic murmur - GI/Abdominal GI/Abdominal exam: Present: normal bowel sounds, soft, no peritoneal signs. Absent: distended, tenderness - Extremities Exam Extremities exam: Present: warm, radial pulses palpable and symmetrical. Absent : calf tenderness, cyanotic, pedal edema Internal Medicine: Result - Labs CBC & Chem 7: 04/16/18 02:52 04/16/18 02:52 Labs: Short CBC 04/16/18 Range/Units 02:52 WBC 6.5 (4.3-11.1) K/mcL Hgb 14.2 (12.9-16.9) g/dL Hct 41.2 (37.5-50.1) % Plt Count 170 (140-400) K/mcL Neutrophils # 3.2 (1.6-8.9) K/mcL BMP 04/16/18 02:52 Sodium 138 Potassium 4.0 Chloride 107 Carbon Dioxide 24 BUN 21 H Creatinine 1.03 Glucose 101 Calcium 8.9 Cardiac Enzymes 04/16/18 04/16/18 Range/Units 02:52 13:38 Troponin I 0.92 H* 0.42 H* (< 0.04) ng/mL - ABG Interpretation ABG results: PT/INR, D-dimer PT 11.0 Seconds (9.4-12.1) 04/15/18 21:14 - Impressions Impressions Echocardiogram 04/16/18 22:19 Impressions: LVEF 60%. Mild left ventricular diastolic dysfunction. Mildy dilated RV with normal function. Mild mitral regurgitation. Mild aortic regurgitation. Mild tricuspid regurgitation. No pulmonary hypertension. Left Ventricular Wall Motion: Rest Echo Findings All wall segments showed normal motion. Findings: Study Quality * Technically adequate exam. ECG Findings * Sinus bradycardia. Left Ventricle * LVEF 60%. * Normal LV chamber size, wall thickness and function. * Mild left ventricular diastolic dysfunction. Right Ventricle * Mildy dilated RV with normal function. Left Atrium * Mildly dilated left atrium. Right Atrium * Normal right atrial size. Mitral Valve * Normal mitral valve structure. * No mitral stenosis. * Mild mitral regurgitation. Aortic Valve * Trileaflet aortic valve. * No aortic stenosis. * Mild aortic regurgitation. Tricuspid Valve * Mild tricuspid regurgitation. * Normal tricuspid valve structure. * Estimated RA pressure is 3 mmHg. * Estimated RVSP is 25 mmHg. * No pulmonary hypertension. Pulmonic Valve * Pulmonic valve is not well visualized. * No pulmonic stenosis. * Trace pulmonic regurgitation. Pulmonary Artery * Pulmonary artery not well visualized. Aorta * Normally sized aortic root for BSA. Pericardium * There is no pericardial effusion present. Interatrial Septum * Interatrial septum not well evaluated. IVC * Normal IVC dimensions and inspiratory collapse. Consult Discharge Plan - Plan Referrals: Dixie Purcell, TONYA [Primary Care Provider] -
[2018-04-16] MEDS ORDERED: Ondansetron 4 MG/2 ML VIAL IVP PRN (20:10)
[2018-04-16] MEDS: Nitroglycerin 25 MG/250 ML INFUS..BTL IVC SCH (20:32)
[2018-04-16] MEDS: *HR* Ticagrelor 90 MG TABLET PO SCH (21:34)
[2018-04-17] MEDS: 0.9 % Sodium Chloride 1,000 ML IVC SCH (04:03)
[2018-04-17 04:28] LABS: Basophils % 0.2 %; Eosinophils # 0.1 K/mcL (0.0-0.6); Hematocrit 41.4 % (37.5-50.1); Hemoglobin 14.1 g/dL (12.9-16.9); Immature Granulocytes % 0.3 % (0-4); Lymphocytes % 11.7 %; Mean Corpuscular HGB Conc 34.1 g/dL (31.6-35.5); Mean Corpuscular Volume 88.1 fL (83.0-100.0); Mean Platelet Volume 9.2 fL (9.4-12.4); Monocytes # 0.7 K/mcL (0.0-1.3); Monocytes % 7.5 %; Platelet Count 173 K/mcL (140-400); Red Cell Distribution Width 13.1 % (11.5-14.5); Segmented Neutrophils % 79.3 %
[2018-04-17 04:44] LABS: BUN/Creatinine Ratio 16 (6-26); Blood Urea Nitrogen 13 mg/dL (6-20); Calcium 8.6 mg/dL (8.6-10.3); Carbon Dioxide 25 mEq/L (23-29); Chloride 105 mEq/L (98-107); Glucose 107 mg/dL (70-105); Osmolality,Calculated 285 (280-300); Potassium 3.8 mEq/L (3.5-5.1); Sodium 137 mEq/L (136-145); eGFR For African Americans > 60 (> 60); eGFR For Non-African Americans > 60 (> 60)
[2018-04-17 07:01] VITALS: BP 127/80
[2018-04-17] MEDS ORDERED: 0.9 % Sodium Chloride 1,000 ML ONE (08:05)
[2018-04-17] MEDS: Aspirin Enteric Coated 81 MG Tablet PO SCH (08:08)
[2018-04-17] MEDS: *HR* Ticagrelor 90 MG TABLET PO SCH (08:08)
--- NOTE | 2018-04-17 09:37 | Discharge Summary ---
Orders not resulted at time of discharge: Pending orders 04/16/18 11:38 ECG 12 lead ECG [ECG] Routine ECG 12 lead ECG [ECG] Stat 04/17/18 07:00 ECG 12 lead ECG [ECG] Routine Date of Encounter: 04/17/18 Time of Encounter: 09:34 - Discharge Diagnosis (1) NSTEMI (non-ST elevated myocardial infarction) Priority: Primary Status: Acute (2) Hypertension Priority: Secondary Status: Acute Qualifiers: Hypertension type: essential hypertension Qualified Code(s): I10 - Essential (primary) hypertension (3) DVT prophylaxis Priority: Secondary Status: Acute Hospital course: Mr. Ann is a 52 year old male with past medical history of tobacco use came to the hospital , He was complaining of intermittent chest pain for the last 3 weeks ,patient described his pain as in midsternal tightness with radiation to his neck and jaw worse with exertion. Workup showed that his troponin was 0.5 .9 to start patient on nitro drip as well as heparin drip continue to monitor the patient cardiology was consulted EKG no acute changes. We started patient on aspirin beta brad as well as statin fasting lipid profile ordered high LDL , cardiology recommended cardiac catheterization, which showed severe one- vessel coronary disease left ventricular is normal and has normal ejection fraction patient had successful PTCA and drug-eluting stent placement in the proximal mid and distal right coronary artery, we will continue to monitor the patient overnight. Patient was ambulating without any problem, no arrhythmia overnight. Patient denies any chest pain or shortness of breath today denies any nausea vomiting. - Time Spent with Patient Total time spent providing and/or coordinating discharge services: Less than 30 minutes - Discharge Medications Prescriptions: Nitroglycerin 0.4 mg SL Q5MIN PRN #30 tab.subl PRN Reason: Chest Pain Atorvastatin [Lipitor] 40 mg PO HS #90 tablet Metoprolol [Lopressor] 12.5 mg PO BID #60 tablet Ticagrelor [Brilinta] 90 mg PO BID #90 tablet Home Medications: Aspirin Enteric Coated [Aspirin EC] 81 mg PO DAILY 04/15/18 [History] Acetaminophen [Tylenol] 650 mg PO Q6HR PRN tablet 04/17/18 [Rx] Atorvastatin [Lipitor] 40 mg PO HS #90 tablet 04/17/18 [Rx] Metoprolol [Lopressor] 12.5 mg PO BID #60 tablet 04/17/18 [Rx] Nitroglycerin 0.4 mg SL Q5MIN PRN #30 tab.subl 04/17/18 [Rx] Ticagrelor [Brilinta] 90 mg PO BID #90 tablet 04/17/18 [Rx] Allergies/Adverse Reactions: 3 Allergy/AdvReac Type Severity Reaction Status Date / Time Oxycodone Allergy Hives Verified 04/15/18 22:09 Penicillins Allergy Rash Verified 04/15/18 22:09 Date of admission: 04/16/18 01:12 Primary care physician: Dixie Purcell CNP Consults: 04/16/18 09:19 Consult to Cardiac Rehabilitation-Phase1 [CONS] Routine Comment: Reason for Consult: NSTEMI Call Completed: No 04/16/18 11:38 Consult to Cardiac Rehabilitation-Phase1 [CONS] Routine Comment: Reason for Consult: AMI Call Completed: Yes Consult to Nurse Navigator [CONS] Routine Comment: Discharging clinician: Merlyn Mcintosh Anticipated date of discharge: 04/17/18 - Constitutional Vitals: Temp Pulse Resp BP Pulse Ox 97.6 F 61 16 127/80 97 04/17/18 06:57 04/17/18 06:57 04/17/18 06:57 04/17/18 06:57 04/17/18 06:57 General appearance: Present: A&O X 3, no acute distress - Head Head exam: Present: atraumatic, normocephalic - Neck Neck exam general surgery: Present: supple, trachea midline. Absent: lymphadenopathy - Respiratory Respiratory exam: Present: CTAB. Absent: accessory muscle use, rales, rhonchi, wheezes - Cardiovascular Cardiovascular exam: Present: RRR, +S1, +S2. Absent: diastolic murmur, gallop, rubs, systolic murmur - GI/Abdominal GI/Abdominal exam: Present: normal bowel sounds, soft, no peritoneal signs. Absent: distended, tenderness - Extremities Exam Extremities exam: Present: warm, radial pulses palpable and symmetrical. Absent : calf tenderness, cyanotic, pedal edema - Neurological Exam Neurological exam: Present: CN II-XII intact, oriented X3, no focal deficits. Absent: pronater drift, facial droop, speech deficit - Patient Status Disposition: Home, Self-Care Condition: Good Functional capacity at discharge: independent ambulation Overall status at discharge: patient is progressing back to baseline - Discharge Instructions Instructions: Myocardial Infarction (DC), Chronic Hypertension (DC) Follow Up With: Dixie Purcell CNP [Primary Care Provider] - 04/22/18 11:00 am Thuan Spear DO [Partnered Physician] - 04/24/18 - Diet and Activity Activity: increase activity as tolerated, other (Patient follow-up with cardiology in 1 week before going back to work)
--- NOTE | 2018-04-17 10:12 | Cardiology Progress Note ---
Date of Encounter: 04/17/18 Time of Encounter: 10:10 Assessment and Plan (1) NSTEMI (non-ST elevated myocardial infarction) Current Visit: Yes Status: Acute Troponins 0.56, 0.92, 0.42. [facility] yesterday for NSTEMI, severe 1 vessel CAD. EF 65%. Successful PTCA/ANTONIA to prox, mid and distal RCA. TTE EF 60%, mild LVDD. Mildly dilated LV with normal function. Mild MR, AR and TR. No phtn. Pt denies chest pain or dyspnea overnight. No acute complaints. DAPT (ASA and Brilinta) uninterrupted x 1 year. Pt verbalizes understanding. Continue BB and Statin. No events on tele. Right femoral access site healing well. No bleeding, hematoma or ecchymosis noted. Restrictions discussed. Follow-up in 1 week as outpt, will coordinate. Recommend not returning to work for 1 week. Cardiology signing off. Reconsult PRN. Discussion w patient/family: The assessment and plan as outlined above was discussed with the patient and/or family members who expressed understanding and agreement. All questions were answered. Thank you for involving us in the care of your patient. Please call with any questions. I will discuss all the above with Dr. More and make changes as necessary. Subjective Principal diagnosis: NSTEMI Interval history: [facility] yesterday for NSTEMI, severe 1 vessel CAD. EF 65%. Successful PTCA/ANTONIA to prox, mid and distal RCA. TTE EF 60%, mild LVDD. Mildly dilated LV with normal function. Mild MR, AR and TR. No phtn. Pt denies chest pain or dyspnea overnight. No acute complaints. Objective Vital Signs, Last 4 Hours Temp Pulse Resp BP Pulse Ox 04/17/18 06:57 97.6 F 61 16 127/80 97 Vital Signs Temp Pulse Resp BP Pulse Ox 04/17/18 06:57 97.6 F 61 16 127/80 97 04/17/18 02:51 49 142/93 04/17/18 02:42 97.6 F 54 16 04/16/18 23:00 98 F 66 16 142/77 96 04/16/18 20:12 92 04/16/18 19:21 98 F 73 15 134/77 95 04/16/18 16:00 97.4 F L 68 16 142/83 93 04/16/18 15:43 97.4 F L 68 16 142/83 93 04/16/18 12:55 16 142/95 Intake and Output 04/16/18 04/17/18 04/17/18 23:59 07:59 15:59 Intake Total 1785.4 / 1785.4 1600 / 1600 720 / 720 Output Total 900 / 900 2425 / 2425 Balance 885.4 / 885.4 -825 / -825 720 / 720 Intake: IV Fluids 1085.4 / 1085.4 1000 / 1000 0.9 % Sodium Chloride 1,000 ML 1000 / 1000 1000 / 1000 @ 100 mls/hr IVC .Q10H DINORAH Rx#: [id number] Nitroglycerin Premix 25 MG/250 85.4 / 85.4 ML 25 mg In 250 ml @ 20 MCG/MIN 12 mls/hr IVC .[id number] DINORAH Rx# :[id number] Oral 700 / 700 600 / 600 720 / 720 Output: Urine 0 / 0 2425 / 2425 Emesis 900 / 900 Other: Meal Dinner Breakfast Percent of Meal Consumed 20% 100% # Voids 1 Weight 96.7 kg General: Conversant, No Apparent Distress HEENT: Atraumatic, Normocephaly, Mucus Membranes Moist Neck: No JVD, Normal carotid pulses Cardiac: Reg Rate and Rhythm, Normal S1 and S2, No Murmur Lungs: Normal Breath Sounds, No Wheeze, Rales, Rhonchi Neuro: Alert and responsive, No focal deficits noted Abdomen: Soft, Non-Tender Skin: Other (right femoral access site healing well. No bleeding, hematoma or ecchymosis noted.) Musculoskeletal: No Chest Wall Tenderness Extremities: No Clubbing, No Cyanosis, No Edema, Normal Pulses Results 04/17/18 03:35 04/17/18 03:35 Lab Results 04/16/18 04/16/18 04/17/18 13:38 13:38 03:35 WBC 8.8 Hgb 14.1 Hct 41.4 Plt Count 173 APTT 34.3 D Sodium Potassium Chloride Carbon Dioxide BUN Creatinine Glucose Calcium Troponin I 0.42 H* 04/17/18 03:35 WBC Hgb Hct Plt Count APTT Sodium 137 Potassium 3.8 Chloride 105 Carbon Dioxide 25 BUN 13 Creatinine 0.81 Glucose 107 H Calcium 8.6 Troponin I Short CBC 04/17/18 Range/Units 03:35 WBC 8.8 (4.3-11.1) K/mcL Hgb 14.1 (12.9-16.9) g/dL Hct 41.4 (37.5-50.1) % Plt Count 173 (140-400) K/mcL Neutrophils # 7.0 (1.6-8.9) K/mcL BMP 04/17/18 Range/Units 03:35 Sodium 137 (136-145) mEq/L Potassium 3.8 (3.5-5.1) mEq/L Chloride 105 (98-107) mEq/L Carbon Dioxide 25 (23-29) mEq/L BUN 13 (6-20) mg/dL Creatinine 0.81 (0.70-1.30) mg/dL Glucose 107 H (70-105) mg/dL Calcium 8.6 (8.6-10.3) mg/dL Cardiac Enzymes 04/16/18 Range/Units 13:38 Troponin I 0.42 H* (< 0.04) ng/mL Impressions Echocardiogram 04/16/18 22:19 Impressions: LVEF 60%. Mild left ventricular diastolic dysfunction. Mildy dilated RV with normal function. Mild mitral regurgitation. Mild aortic regurgitation. Mild tricuspid regurgitation. No pulmonary hypertension. Left Ventricular Wall Motion: Rest Echo Findings All wall segments showed normal motion. Findings: Study Quality * Technically adequate exam. ECG Findings * Sinus bradycardia. Left Ventricle * LVEF 60%. * Normal LV chamber size, wall thickness and function. * Mild left ventricular diastolic dysfunction. Right Ventricle * Mildy dilated RV with normal function. Left Atrium * Mildly dilated left atrium. Right Atrium * Normal right atrial size. Mitral Valve * Normal mitral valve structure. * No mitral stenosis. * Mild mitral regurgitation. Aortic Valve * Trileaflet aortic valve. * No aortic stenosis. * Mild aortic regurgitation. Tricuspid Valve * Mild tricuspid regurgitation. * Normal tricuspid valve structure. * Estimated RA pressure is 3 mmHg. * Estimated RVSP is 25 mmHg. * No pulmonary hypertension. Pulmonic Valve * Pulmonic valve is not well visualized. * No pulmonic stenosis. * Trace pulmonic regurgitation. Pulmonary Artery * Pulmonary artery not well visualized. Aorta * Normally sized aortic root for BSA. Pericardium * There is no pericardial effusion present. Interatrial Septum * Interatrial septum not well evaluated. IVC * Normal IVC dimensions and inspiratory collapse. Chest X-Ray 04/17/18 06:00 IMPRESSION: No acute process. D/ / Angel Alamo MD / Angel Alamo MD Interpreting Provider: Angel Alamo MD Active Medications Acetaminophen (Tylenol) 650 mg PO Q6HR PRN PRN Reason: Mild Pain/Fever Stop: 10/15/18 22:18 Last Admin: 04/16/18 19:59 Dose: 650 mg Al Hydrox/Mg Hydrox/Simethicone (Maalox) 30 ml PO Q4H PRN; Protocol PRN Reason: Indigestion Stop: 10/16/18 15:59 Last Admin: 04/16/18 16:10 Dose: 30 ml Aspirin (Aspirin Ec) 81 mg PO DAILY DINORAH Stop: 10/16/18 09:01 Last Admin: 04/17/18 08:08 Dose: 81 mg Atorvastatin Calcium (Lipitor) 40 mg PO HS DINORAH Stop: 10/16/18 21:01 Last Admin: 04/16/18 21:34 Dose: 40 mg Sodium Chloride (0.9 % Sodium Chloride) 1,000 mls @ 100 mls/hr IVC .Q10H DINORAH Stop: 10/16/18 11:31 Last Admin: 04/17/18 04:03 Dose: 100 mls/hr Metoprolol Tartrate (Lopressor) 12.5 mg PO BID DINORAH Stop: 10/15/18 22:31 Last Admin: 04/17/18 08:08 Dose: 12.5 mg Naloxone HCl (Narcan) 0.4 mg IVP Q2MIN PRN PRN Reason: SEE COMMENTS Stop: 10/15/18 22:18 Nitroglycerin (Nitroglycerin) 0.4 mg SL Q5MIN PRN PRN Reason: Chest Pain Stop: 10/15/18 22:19 Omeprazole (Prilosec) 40 mg PO DAILY@0630 DINORAH PRN Reason: Protocol Stop: 10/17/18 08:31 Ondansetron HCl (Zofran) 4 mg IVP Q6HR PRN; Protocol PRN Reason: Nausea And Vomiting Stop: 10/16/18 20:11 Last Admin: 04/16/18 20:31 Dose: 4 mg Ticagrelor (Brilinta) 90 mg PO BID DINORAH Stop: 10/16/18 21:01 Last Admin: 04/17/18 08:08 Dose: 90 mg Tramadol HCl (Ultram) 50 mg PO Q4HR PRN PRN Reason: pain 4-6 Stop: 10/16/18 06:17 Last Admin: 04/16/18 15:37 Dose: 50 mg - Imaging and Cardiology Echo: report reviewed Cardiac cath: report reviewed - EKG Interpretation EKG results cardiology: other (12 hr tele AVG HR 57, SR, no significant pauses or arrhythmias noted.) Consult Discharge Plan - Plan Instructions: Myocardial Infarction (DC), Chronic Hypertension (DC) Additional Instructions: RISK FACTORS: STOP SMOKING: If you smoke, STOP. Smoking or tobacco use significantly increases your risk of heart disease because nicotine causes the arteries to narrow or constrict. It also causes fats to stick to the artery. Your chances of having a heart attack are greatly increased if you continue to smoke. For more information, call the education line for smoking cessation 7-983-HNQHUUT EAT A LOW FAT/CHOLESTEROL/SODIUM DIET: This diet may help reduce your chances of having a heart attack. LIFTING: Avoid lifting anything more than 10 pounds for 5-7 days Prior to straining, laughing, sneezing and/or coughing, apply manual pressure directly over insertion site. ACTIVITY: You may walk or climb stairs as tolerated You can resume sexual activity as tolerated In general, you are encouraged to engage in a minimum of 30 minutes or more of moderate intensity physical activity, such as brisk walking, daily or at least 3 -4 times weekly BATHING Do not submerge the site into water (bath tub, hot tub, swimming pool) for 1 week. This can be a source for infection into the blood stream. You may shower after 24 hours SITE CARE: After 24 hours, you may remove the dressing and leave the site open to air. Keep the site clean and dry. Clean gently and pat dry. You can expect bruising and tenderness that gradually resolve within a week or two. Return to work as instructed per your physician Resume driving as instructed per physician Keep all scheduled follow up appointments Resume medications as instructed IMPORTANT: If prescribed a Platelet Aggregation Inhibitor such as, Plavix, Brilinta or Effient: Duration of therapy is minimum one year These medications are often used in combination with Aspirin in prevention of future heart attacks Never discontinue unless consult with your Sales And Leasing Agent STROKE (CVA) Risk factors for a stroke are: Age, cigarette smoking, diabetes, excessive alcohol consumption, family history, high blood pressure, overweight, physical inactivity, prior stroke, heart attack, diagnosis of carotid artery stenosis or other artery disease. Warning signs: Sudden numbness or weakness of the face, arm or leg; especially on one side of the body, sudden confusion, trouble speaking or understanding, sudden trouble seeing in one or both eyes, sudden trouble walking, dizziness, loss of balance or coordination, sudden severe headache with no cause. Call 911 or go to the Emergency Room. CONGESTIVE HEART FAILURE: If you have been diagnosed with Congestive Heart Failure (CHF) and your symptoms return, make an appointment with your physician Weigh yourself daily. Notify your physician if you have a weight gain of two or more pounds in one day or five or more pounds in one week. If you experience any difficulty breathing, please call 911 BLEEDING: Although the risk of bleeding is minimal, it can happen. If you have any bleeding from the site, apply firm pressure above the puncture site for 10-15 minutes. If the bleeding does not stop, continue manual pressure and call 911 Contact your physician if: You develop a fever greater than 101 degrees Fahrenheit Your site becomes reddened or has any drainage You have an increase in pain or burning at the site or if a large knot forms at the site. If you experience chest pain, shortness of breath, dizziness, or extreme tiredness, stop the activity and rest. Please notify your physicians office if you experience any of these symptoms and they are not relieved by rest please call 911! Referrals: Thuan Spear DO [Partnered Physician] - 04/24/18 Dixie Purcell CNP [Primary Care Provider] - 04/22/18 11:00 am Prescriptions: Nitroglycerin 0.4 mg SL Q5MIN PRN #30 tab.subl PRN Reason: Chest Pain Atorvastatin [Lipitor] 40 mg PO HS #90 tablet Metoprolol [Lopressor] 12.5 mg PO BID #60 tablet Ticagrelor [Brilinta] 90 mg PO BID #90 tablet
--- NOTE | 2018-04-19 20:44 | Electrocardiograph Report ---
[place] [id number] Test Date: 2018-04-15 Pat Name: Arlette Ann Department: 103 Room: [facility] Gender: M Biopharmaceutical Rep: MS : 1965 Requested By: Humberto Wallis Order Number: [id number] Reading MD: Daniel Crawford Measurements Intervals [place] Rate: 79 P: 39 MS: 165 QRS: 50 QRSD: 100 T: 27 QT: 355 QTc: 390 Interpretive Statements SINUS RHYTHM Electronically Signed On 04-19-2018 20:42:32 EDT by Daniel Crawford
--- NOTE | 2018-04-19 20:46 | Electrocardiograph Report ---
[address] [address] Test Date: 2018-04-15 Pat Name: Arlette Ann Department: 103 Room: [facility] Gender: M Information Support Project Manager: : 1965 Requested By: Wilfrido Rawls Order Number: [id number] Reading MD: Daniel Crawford Measurements Intervals [place] Rate: 76 P: 32 IN: 162 QRS: 38 QRSD: 101 T: 20 QT: 370 QTc: 400 Interpretive Statements SINUS RHYTHM Electronically Signed On 04-19-2018 20:45:34 EDT by Daniel Crawford
--- NOTE | 2018-04-20 09:04 | Electrocardiograph Report ---
[place] [id number] Test Date: 2018-04-17 Pat Name: Arlette Ann Department: 111 Room: [facility] Gender: M Local Government Legislator: : 1965 Requested By: Thuan Spear Order Number: [id number] Reading MD: Rick Acosta Measurements Intervals [place] Rate: 49 P: 30 NC: 164 QRS: 3 QRSD: 98 T: -3 QT: 429 QTc: 399 Interpretive Statements SINUS BRADYCARDIA Electronically Signed On 04-20-2018 9:03:24 EDT by Rick Acosta
== END 2018-04-17 10:39 | disposition home or self-care (01) | DRG 247 ==
LOC: EMEROO 20:53 → 2NENU 04-16 01:12
PROVIDERS: ADMIT Family Medicine; ATTEND Family Medicine

== ENCOUNTER 2019-09-02 19:03 | Observation (INO) ==
[2019-09-02] MEDS ORDERED: Aspirin 81 MG TAB.CHEW PO ONE (19:12)
[2019-09-02 19:39] LABS: Basophils # 0.1 K/mcL (0.0-0.2); Basophils % 0.8 %; Eosinophils # 0.3 K/mcL (0.0-0.6); Eosinophils % 4.1 %; Hematocrit 48.2 % (37.5-50.1); Hemoglobin 16.4 g/dL (12.9-16.9); Immature Granulocytes % 0.6 % (0-4); Lymphocytes % 30.1 %; Mean Corpuscular Hemoglobin 31.5 pg (28.0-33.3); Mean Corpuscular Volume 92.5 fL (83.0-100.0); Mean Platelet Volume 9.5 fL (9.4-12.4); Monocytes # 0.6 K/mcL (0.0-1.3); Monocytes % 8.6 %; Neutrophils # 3.7 K/mcL (1.6-8.9); Platelet Count 184 K/mcL (140-400); Red Blood Count 5.21 M/mcL (4.19-5.50); Red Cell Distribution Width 12.4 % (11.5-14.5); Segmented Neutrophils % 55.8 %; White Blood Count 6.7 K/mcL (4.3-11.1)
[2019-09-02 19:54] LABS: INR 0.9; Prothrombin Time 10.1 Seconds (9.4-12.1)
[2019-09-02 20:03] LABS: BUN/Creatinine Ratio 19 (6-26); Blood Urea Nitrogen 18 mg/dL (6-20); Calcium 9.3 mg/dL (8.6-10.3); Carbon Dioxide 27 mEq/L (23-29); Chloride 103 mEq/L (98-107); Glucose 122 mg/dL (70-105); Osmolality,Calculated 289 (280-300); Potassium 3.8 mEq/L (3.5-5.1); Sodium 138 mEq/L (136-145); eGFR For African Americans > 60 (> 60); eGFR For Non-African Americans > 60 (> 60)
[2019-09-02 20:35] LABS: Troponin I < 0.03 ng/mL (< 0.04)
[2019-09-02] MEDS ORDERED: Naloxone 0.4 MG/ML INJ IVP PRN (21:53)
[2019-09-02] MEDS ORDERED: Nitroglycerin 0.4 MG TAB.SUBL SL PRN (21:59)
[2019-09-02] MEDS ORDERED: Morphine Sulfate 2 MG/ML SYRINGE IVP PRN (21:59)
[2019-09-02] MEDS ORDERED: 0.9 % Sodium Chloride 1,000 ML IVC SCH (22:00)
[2019-09-02] MEDS ORDERED: Divalproex (24 HR) 250 MG TABLET PO SCH (22:08)
[2019-09-02] MEDS: *HR* Heparin 5,000 UNIT/ML VIAL SQ SCH (23:01)
[2019-09-03 04:47] LABS: INR 0.9; Prothrombin Time 10.3 Seconds (9.4-12.1)
[2019-09-03 04:56] LABS: Basophils % 0.7 %; Eosinophils # 0.2 K/mcL (0.0-0.6); Eosinophils % 3.9 %; Hematocrit 42.8 % (37.5-50.1); Hemoglobin 15.1 g/dL (12.9-16.9); Immature Granulocytes % 0.5 % (0-4); Lymphocytes # 1.9 K/mcL (0.6-4.6); Lymphocytes % 32.6 %; Mean Corpuscular HGB Conc 35.3 g/dL (31.6-35.5); Mean Corpuscular Hemoglobin 31.9 pg (28.0-33.3); Mean Corpuscular Volume 90.5 fL (83.0-100.0); Mean Platelet Volume 9.5 fL (9.4-12.4); Monocytes # 0.5 K/mcL (0.0-1.3); Monocytes % 8.6 %; Neutrophils # 3.2 K/mcL (1.6-8.9); Platelet Count 165 K/mcL (140-400); Red Blood Count 4.73 M/mcL (4.19-5.50); Red Cell Distribution Width 12.5 % (11.5-14.5); Segmented Neutrophils % 53.7 %; White Blood Count 5.9 K/mcL (4.3-11.1)
[2019-09-03 05:09] LABS: Alanine Aminotransferase 27 Units/L (7-52); Albumin 3.8 g/dL (3.5-5.7); Albumin/Globulin Ratio 1.7 (1.1-2.2); Alkaline Phosphatase 96 Units/L (34-104); Aspartate Amino Transferase 18 Units/L (13-39); BUN/Creatinine Ratio 15 (6-26); Bilirubin,Total 0.6 mg/dL (0.3-1.0); Blood Urea Nitrogen 15 mg/dL (6-20); Calcium 8.6 mg/dL (8.6-10.3); Carbon Dioxide 28 mEq/L (23-29); Chloride 104 mEq/L (98-107); Chol/HDL Ratio 3.7 (0-4.9); Cholesterol 119 mg/dL (< 200); Globulin 2.2 g/dL (2.4-3.5); Glucose 100 mg/dL (70-105); HDL Cholesterol 32 mg/dL (40-59); LDL Cholesterol,Calculated 65 mg/dL (0-99); Osmolality,Calculated 289 (280-300); Phosphorous 3.3 mg/dL (2.7-4.5); Potassium 4.4 mEq/L (3.5-5.1); Sodium 139 mEq/L (136-145); Triglycerides 109 mg/dL (< 150); Troponin I < 0.03 ng/mL (< 0.04); eGFR For African Americans > 60 (> 60); eGFR For Non-African Americans > 60 (> 60)
[2019-09-03 05:20] LABS: Thyroid Stimulating Hormone 3.146 mcIU/mL (0.340-5.600)
[2019-09-03] MEDS: *HR* Heparin 5,000 UNIT/ML VIAL SQ SCH (06:06)
[2019-09-03] MEDS ORDERED: Regadenoson 0.4 MG/5 ML SYRINGE IVP ONE (06:28)
[2019-09-03 06:31] VITALS: BP 132/77
[2019-09-03 11:04] LABS: Amphetamine Screen,Urine Negative ng/mL (Cutoff=1000); Barbiturate Screen,Urine Negative ng/mL (Cutoff=200); Benzodiazepines Screen,Urine Negative ng/mL (Cutoff=200); Cannabinoid Screen,Urine Negative ng/mL (Cutoff = 50); Cocaine Screen,Urine Negative ng/mL (Cutoff= 300); Opiate Screen,Urine Negative ng/mL (Cutoff=300); Phencyclidine Screen,Urine Negative ng/mL (Cutoff=25)
[2019-09-03] MEDS ORDERED: Aspirin Enteric Coated 81 MG Tablet PO SCH (21:00)
== END 2019-09-03 13:09 | disposition home or self-care (01) ==
LOC: EMEROOARM 19:03 → 3BNU 19:03 → SUATTDRO 21:18 → 3BNU 21:35
PROVIDERS: ADMIT Internal Medicine; ATTEND Family Medicine